=== PATIENT | female | born 1985 | race Caucasian/White ===

== ENCOUNTER 2021-10-02 08:16 | Day surgery (SDC) | payer OTHER ==
[2021-10-02] MEDS ORDERED: Sodium Chloride 0.9% 1,000 ML IV SCH (08:45)
[2021-10-02] MEDS ORDERED: fentaNYL 100 MCG/2 ML SDV ONE (09:22)
[2021-10-02] MEDS ORDERED: Midazolam 1 MG/ML 2 ML SDV ONE (09:22)
[2021-10-02] MEDS ORDERED: Propofol 200 MG/20 ML SDV ONE ×2 (09:22→11:02)
[2021-10-02 12:09] VITALS: PULSE 64
[2021-10-02 12:33] VITALS: BP 150/102
== END 2021-10-02 12:35 | disposition home or self-care (01) ==
LOC: JP.SDS 08:16
PROVIDERS: ATTEND Surgery
DX: K52.9 Noninfective gastroenteritis and colitis, unspecified (principal); K64.8 Other hemorrhoids; E66.9 Obesity, unspecified
CPT/HCPCS: J2250; J2704; J3010; J7030

== ENCOUNTER 2022-05-15 13:43 | Emergency (ER) | payer OTHER ==
[2022-05-15 14:04] VITALS: BP 150/105; PULSE 109
[2022-05-15 15:30] LABS: CORONAVIRUS COVID-19 NAA NEGATIVE (NEGATIVE)
== END 2022-05-15 14:44 | disposition home or self-care (01) ==
LOC: JP.ED 13:43
DX: B34.9 Viral infection, unspecified (principal); Z91.048 Other nonmedicinal substance allergy status; Z20.822 Contact with and (suspected) exposure to COVID-19
CPT/HCPCS: 0241U; 99283

== ENCOUNTER 2022-06-17 06:22 | Day surgery (SDC) | payer OTHER ==
[2022-06-17] MEDS ORDERED: Sodium Chloride 0.9% 1,000 ML IV SCH (07:00)
[2022-06-17] MEDS ORDERED: Propofol 200 MG/20 ML SDV ONE (07:20)
[2022-06-17] MEDS ORDERED: fentaNYL 50 MCG/ML SDV ONE (07:20)
[2022-06-17] MEDS ORDERED: Midazolam 1 MG/ML 2 ML SDV ONE (07:20)
[2022-06-17 08:50] VITALS: BP 132/87; PULSE 91
== END 2022-06-17 09:11 | disposition home or self-care (01) ==
LOC: JP.SDS 06:22
PROVIDERS: ATTEND Surgery
DX: K29.50 Unspecified chronic gastritis without bleeding (principal); K21.9 Gastro-esophageal reflux disease without esophagitis; F41.9 Anxiety disorder, unspecified; E66.9 Obesity, unspecified; I10 Essential (primary) hypertension; Z68.33 Body mass index [BMI] 33.0-33.9, adult; Z79.899 Other long term (current) drug therapy; Z88.4 Allergy status to anesthetic agent; Z91.048 Other nonmedicinal substance allergy status
CPT/HCPCS: 81025; 88305; J2250; J2704; J3010; J7030

== ENCOUNTER 2024-02-25 19:59 | Emergency (ER) | payer OTHER ==
[2024-02-25 20:27] VITALS: BP 146/101; PULSE 81
[2024-02-25] MEDS: Lidocaine 1% with EPINEPHrine 1:100,000 50 ML MDV SUBCUT STA (21:14)
[2024-02-25] MEDS: Diphtheria,Pertussis(Acell),Tetanus Vaccine 0.5 ML Syringe IM ONE (21:14)
[2024-02-25] MEDS: Bacitracin Oint 1 GM U/D Packet TOP ONE (21:15)
== END 2024-02-25 22:09 | disposition home or self-care (01) ==
LOC: JP.ED 19:59
DX: S81.012A Laceration without foreign body, left knee, initial encounter (principal); Z23 Encounter for immunization; I10 Essential (primary) hypertension; F17.210 Nicotine dependence, cigarettes, uncomplicated; Z88.8 Allergy status to other drugs, medicaments and biological substances; Z91.048 Other nonmedicinal substance allergy status; Z79.899 Other long term (current) drug therapy; Z86.16 Personal history of COVID-19; W19.XXXA Unspecified fall, initial encounter
CPT/HCPCS: 12002; 90471; 90715; 99282-25

== ENCOUNTER 2024-02-26 12:56 | Emergency (ER) | payer OTHER ==
[2024-02-26 13:22] VITALS: BP 143/99; PULSE 83
== END 2024-02-26 17:27 | disposition home or self-care (01) ==
LOC: JP.ED 12:56
DX: S93.601A Unspecified sprain of right foot, initial encounter (principal); I10 Essential (primary) hypertension; F17.200 Nicotine dependence, unspecified, uncomplicated; Z86.16 Personal history of COVID-19; Z79.899 Other long term (current) drug therapy; Z91.048 Other nonmedicinal substance allergy status; W23.1XXA Caught, crushed, jammed, or pinched between stationary objects, initial encounter
CPT/HCPCS: 73700-RT; 76377; 99283

== ENCOUNTER 2025-06-28 08:46 | Day surgery (SDC) | payer OTHER ==
[2025-06-28] MEDS ORDERED: Propofol 200 MG/20 ML SDV ONE ×2 (09:08→11:56)
[2025-06-28] MEDS ORDERED: Midazolam 1 MG/ML 2 ML SDV ONE (09:09)
[2025-06-28] MEDS ORDERED: fentaNYL 50 MCG/ML SDV ONE (09:09)
[2025-06-28] MEDS: Lactated Ringers 1,000 ML IV SCH (10:10)
[2025-06-28 13:40] VITALS: BP 111/65; PULSE 62
== END 2025-06-28 13:20 | disposition home or self-care (01) ==
LOC: JP.SDS 08:46
PROVIDERS: ATTEND Surgery
DX: K63.5 Polyp of colon (principal); K64.8 Other hemorrhoids; K92.2 Gastrointestinal hemorrhage, unspecified; I10 Essential (primary) hypertension; Z88.8 Allergy status to other drugs, medicaments and biological substances; Z91.09 Other allergy status, other than to drugs and biological substances; Z79.899 Other long term (current) drug therapy
CPT/HCPCS: 45385; 45398; J2250; J2704; J3010; J7120; 00811-QZ; 88305